=== PATIENT | female | born 1995 | race Caucasian/White ===

== ENCOUNTER 2016-11-01 21:56 | Emergency (ER) | payer OTHER ==
[~2016-11-01] VITALS: Ht 149.9 cm; Wt 62.6 kg
[~2016-11-01 21:56] MED LIST: FLEXERIL10 MG PO; MOTRIN 600 MG600 MG PO
--- NOTE | 2016-11-01 23:15 | ED UPPER/LOWER EXTREMITY COMPL ---
History of Present Illness General Chief Complaint: Lower Extremity Injury Stated Complaint: L ANKLE INJURY ICESKATING X 1 HR AGO Source: patient Exam Limitations: no limitations Vital Signs & Intake/Output Vital Signs & Intake/Output Vital Signs Date Time Temp Pulse Resp B/P Pulse O2 O2 Flow FiO2 Ox Delivery Rate 11/02 0034 98.0 76 18 120/76 98 Room Air 11/01 2329 Room Air 11/01 2201 98.2 82 18 97 Room Air ED Intake and Output 11/02 0000 11/01 1200 Intake Total 0 Output Total Balance 0 Intake, Oral 0 Patient 138 lb Weight Allergies Coded Allergies: latex (SWELLING, RASH 11/01/16) Reconcile Medications No Known Home Medications Triage Note: PT TO ED C/O LEFT ANKLE PAIN AND SWELLING S/P ROLLINGING IT WHILE ICE SKATING 1 HR MANDARIN TUTOR.. HAS WRAP ANSD ICE ON ARRIVAL. REFUSES TYLENOL/IBUPROFIN IN TRIAGE. PT DROVE SELF TO ED Triage Nurses Notes Reviewed? yes : No Patient currently breastfeeds: No HPI: this patient is a 21-year-old female who presented to the emergency department today for left ankle pain status post twisting her ankle while ice skating today. The patient reported the pain except an 8 out of 10 and is primarily located in the outside of her ankle. The pain is occasionally radiating up to her knee. The patient denied any numbness or tingling in her extremity. The pain has been constant since onset and worse with ambulation and when pressure is applied to the area. The patient denied any head strike or loss of consciousness. She denies any hip pain. The patient did not take any medication for the pain prior to arrival in the emergency department. (LUCY CHIN PA-C) Past History Travel History Traveled to [place] past 21 day No Medical History Any Pertinent Medical History? see below for history Neurological: NONE EENT: NONE Cardiovascular: NONE Respiratory: NONE Gastrointestinal: NONE Hepatic: NONE Renal: NONE Musculoskeletal: BACK PAIN Psychiatric: NONE Endocrine: NONE Blood Disorders: NONE Cancer(s): NONE WORM GROWER/Reproductive: NONE Surgical History Surgical History: non-contributory Psychosocial History What is your primary language Libyan Tobacco Use: Never used ETOH Use: denies use Illicit Drug Use: denies illicit drug use Family History Hx Contributory? No (LUCY CHIN PA-C) Review of Systems Review of Systems Constitutional: Reports: no symptoms. EENTM: Reports: no symptoms. Respiratory: Reports: no symptoms. Cardiovascular: Reports: no symptoms. Gastrointestinal/Abdominal: Reports: no symptoms. Musculoskeletal: Reports: see HPI. Skin: Reports: no symptoms. Neurological/Psychological: Reports: no symptoms. All Other Systems: Reviewed and Negative (LUCY CHIN PA-C) Physical Exam Physical Exam General Appearance: well developed/nourished, no apparent distress, alert, awake Comments: Well-developed well-nourished person in no acute distress HEENT: Head normocephalic/atraumatic, moist mucous membranes Neck: Supple. Full range of motion Back: Normal inspection Respiratory: No respiratory distress. Speaking in full sentences Left lower extremity: Effusion noted to the lateral malleolus. No overlying ecchymosis or erythema. Range of motion of the ankle limited due to pain. Capillary refill less than 2 seconds. Dorsalis pedis and posterior tibialis pulses 2+ and strong. No bony or muscular deformities noted. Neuro: Alert and oriented x3 Psych: Mood affect normal, normal memory normal judgment. Skin: Warm and dry, no rash on exposed skin (LUCY CHIN PA-C) Progress Differential Diagnosis: arterial insufficiency, cellulitis, compartment syndrome , contusion, dislocation, DVT, fracture, sprain, tendon injury Plan of Care: Orders Procedure Date/time Status Durable Medical Equipment 11/02 27 Active URINE 11/01 2205 Complete Laboratory Tests 11/01/162217: Urine Test NEGATIVE Diagnostic Imaging: Viewed by Me: Radiology Read. Discussed w/RAD: Radiology Read. Radiology Impression: PATIENT: CALLY ROBERTO PRESENT AGE: 21 PATIENT ACCOUNT NO: [id number] : 96 LOCATION: [facility] ORDERING PHYSICIAN: JOSELYN COKER MD SERVICE DATE: 11/01/16 EXAM TYPE: RAD - XRY-ANKLE 3 OR MORE VIEWS L EXAMINATION: XR ANKLE, LEFT CLINICAL INFORMATION: Left ankle injury. COMPARISON: None TECHNIQUE: AP, lateral, and mortise views of the left ankle. FINDINGS: Oblique fracture of the lateral malleolus at the level the synchondrosis. Fracture slightly displaced. Tibia intact. Ankle mortise is congruent. Soft tissue swelling over the anterior lateral ankle. IMPRESSION: Oblique fracture of lateral malleolus. DICTATED BY: MANGO MUNOZ MD DATE/TIME DICTATED:11/01/162337 LASER MACHINE OPERATOR:GENARO DATE/TIME TRANSCRIBED:11/01/162337 CONFIDENTIAL, DO NOT COPY WITHOUT APPROPRIATE AUTHORIZATION. <Electronically signed in Other Vendor System> SIGNED BY: MANGO MUNOZ MD 11/01/16 8120 (LUCY CHIN PA-C) Departure Departure Disposition: HOME OR SELF CARE Condition: Stable Clinical Impression Primary Impression: Fracture of malleolus of left ankle Referrals: TANISHA YOON MD PATIENT HAS NO PRIMARY CARE DR (PCP/Family) Additional Instructions: Please keep the splint in place that was applied here in the emergency Department. Keep the splint dry. Please remain nonweightbearing and use the crutches provided to here in the emergency department. You may apply ice to the effected area for 15-20 minutes, 3-4 times a day. Elevate your leg when possible. Please call to make an appointment with the orthopedic physician whose information has been provided to you in this packet for further evaluation. Return to the emergency department for any worsening symptoms or concerns. Departure Forms: Customer Survey General Discharge Information Prescriptions: Current Visit Scripts No Known Home Medications (LUCY CHIN PA-C) PA/CHAIN MAKER MACHINE Co-Sign Statement Statement: ED Attending supervision documentation- [] I saw and evaluated the patient. I have also reviewed all the pertinent lab results and diagnostic results. I agree with the findings and the plan of care as documented in the PA's/CHAIN MAKER MACHINE's documentation. [x] I have reviewed the ED Record and agree with the PA's/CHAIN MAKER MACHINE's documentation. [] Additions or exceptions (if any) to the PAs/CHAIN MAKER MACHINE's note and plan are summarized below: [] (SHEELA MANCIA,JOSELYN Branch) Procedures Splinting Location: left ankle Manual Alignment Performed: No Hand-Made Type: orthoglass Splint: posterior walking, U-SPLINT Splint Applied By: splint applied by me Pre-Proc Neuro Vasc Exam: normal Post-Proc Neuro Vasc Exam: normal Progress: Patient tolerated the procedure well. She refused any medication to go home with for pain. (LUCY CHIN PA-C)
--- NOTE | 2016-11-01 23:43 | RADIOLOGY REPORT ---
EXAMINATION: XR ANKLE, LEFT CLINICAL INFORMATION: Left ankle injury. COMPARISON: None TECHNIQUE: AP, lateral, and mortise views of the left ankle. FINDINGS: Oblique fracture of the lateral malleolus at the level the synchondrosis. Fracture slightly displaced. Tibia intact. Ankle mortise is congruent. Soft tissue swelling over the anterior lateral ankle. IMPRESSION: Oblique fracture of lateral malleolus.
[2016-11-02 00:34] VITALS: BP 120/76
== END 2016-11-02 00:35 ==
LOC: ERH 21:56
DX: S82.62XA Displaced fracture of lateral malleolus of left fibula, initial encounter for closed fracture (principal); X50.0XXA Overexertion from strenuous movement or load, initial encounter; Y93.21 Activity, ice skating
CPT/HCPCS: 73610-LT; 81025

== ENCOUNTER 2017-02-05 15:08 | Emergency (ER) | payer OTHER ==
[~2017-02-05] VITALS: Ht 149.9 cm; Wt 64.0 kg
--- NOTE | 2017-02-05 15:24 | ED GI/GU/ABDOMINAL COMPLAINT ---
History of Present Illness General Chief Complaint: Female Urogenital Problems Stated Complaint: SIB DR. GRIFFITH FOR EVAL/US Source: patient Exam Limitations: no limitations Vital Signs & Intake/Output Vital Signs & Intake/Output Vital Signs Date Time Temp Pulse Resp B/P B/P Pulse O2 O2 Flow FiO2 Mean Ox Delivery Rate 02/05 1515 98.2 91 18 143/83 98 Room Air Allergies Coded Allergies: latex (SWELLING, RASH 11/01/16) Reconcile Medications No Known Home Medications Triage Note: 21 YO FEMALE SENT IN BY CONTINUOUS IMPROVEMENT ANALYST. STATES SHE HAS BEEN HAVING VAGINAL BLEEDING FOR 4 DAYS. STATES PAIN IN RUQ/RLQ. STATES VAGINAL BLEEDING HAS SUBSIDED BUT THE PAIN REMAINS. DENEIS NAUSEA/VOMITING. Triage Nurses Notes Reviewed? yes ? N Is pt currently ? No Onset: Abrupt Duration: day(s): (6) Timing: recent history Quality/Severity: sharpness, severe Location: right lower quadrant, right upper quadrant (MILD WITH COUGH) Activities at Onset: none Sexually Active: Yes Use of Protection: Yes Always Associated Symptoms: abdominal pain, VAGINAL BLEEDING HPI: This is a 21-year-old healthy female presents to the operative right upper quadrant and right lower quadrant abdominal pain. She states last and Friday she had significant lower abdominal pain. She thought she was constipated took 2 stool softeners and Gas-X without relief. Friday night into Friday morning she started bleeding heavily. She states she had just finished her period prior 5 days prior to that. Patient bled heavily over the weekend until Friday and states that even now when the bleeding has gone she still having persistent right lower quadrant pain. She also has right upper quadrant pain worse with coughing. She saw her primary care doctor who did a urine which was negative but sent her in for evaluation and ultrasound. No personal history of ovarian cysts. She's never been . Denies any vaginal discharge or urinary symptoms. She has since had a bowel movement which she reports is normal. No nausea vomiting fever or chills. Family history of MS and diabetes. Past History Travel History Traveled to [place] past 21 day No Medical History Any Pertinent Medical History? see below for history Neurological: NONE EENT: NONE Cardiovascular: NONE Respiratory: NONE Gastrointestinal: NONE Hepatic: NONE Renal: NONE Musculoskeletal: BACK PAIN Psychiatric: NONE Endocrine: NONE Blood Disorders: NONE Cancer(s): NONE CONTINUOUS IMPROVEMENT ANALYST/Reproductive: NONE Surgical History Surgical History: non-contributory Psychosocial History What is your primary language Yi Tobacco Use: Never used Family History Comment: MOTHER - MS FAMILY H/O DM Hx Contributory? No Review of Systems Review of Systems Constitutional: Denies: chills, fever. EENTM: Reports: no symptoms. Respiratory: Denies: cough, short of breath. Cardiovascular: Denies: chest pain, palpitations. GI: Reports: abdominal pain, constipation. Denies: nausea, vomiting. Genitourinary: Reports: no symptoms. Musculoskeletal: Reports: no symptoms. Skin: Reports: no symptoms. Neurological/Psychological: Reports: no symptoms. Hematologic/Endocrine: Reports: bleeding. Denies: bruising, polyuria, polydipsia. Immunologic/Allergic: Reports: no symptoms. All Other Systems: Reviewed and Negative Physical Exam Physical Exam General Appearance: well developed/nourished, alert, awake, mild distress Head: atraumatic, normal appearance Eyes: Bilateral: normal appearance, PERRL, normal inspection. Ears, Nose, Throat, Mouth: hearing grossly normal, moist mucous membrane Neck: normal inspection, supple, full range of motion Respiratory: normal breath sounds, chest non-tender, no respiratory distress Cardiovascular: edema Peripheral Pulses: 2+ radial (R), 2+ radial (L) Gastrointestinal: soft, tenderness (MILD RUQ/RL) Core Measures ACS in differential dx? No Severe Sepsis Present: No Septic Shock Present: No Progress Differential Diagnosis: cholecystitis, ectopic , intrauterine , kidney stone, ovarian cyst, ovarian torsion, IBD, IBS Plan of Care: Orders Procedure Date/time Status LIPASE 02/05 1532 Complete COMPREHENSIVE METABOLIC PANEL 02/05 1532 Complete CBC WITHOUT DIFFERENTIAL 02/05 1532 Complete AMYLASE 02/05 1532 Complete URINE 02/05 1521 Complete URINALYSIS 02/05 1521 Complete Laboratory Tests 02/05/17 1618: Anion Gap 16, Estimated GFR > 60, BUN/Creatinine Ratio 18.3, Glucose 78, Calcium 9.5, Total Bilirubin 0.7, AST 33, ALT 44, Alkaline Phosphatase 78, Total Protein 7.8, Albumin 4.8, Globulin 3.0, Albumin/Globulin Ratio 1.6, Amylase 42, Lipase 42, CBC w Diff NO MAN DIFF REQ, RBC 4.69, MCV 77.4 L, MCH 25.5 L, RDW 14.8 H, MPV 8.7, Gran % 69.2, Lymphocytes % 22.3, Monocytes % 6.0, Eosinophils % 2.2, Basophils % 0.3, Absolute Granulocytes 5.7, Absolute Lymphocytes 1.8, Absolute Monocytes 0.5, Absolute Eosinophils 0.2, Absolute Basophils 0, PUBS MCHC 32.9 L , Urine Color YEL, Urine Clarity HAZY H, Urine pH 6.0, Ur Specific [place] 1.025, Urine Protein TRACE H, Urine Ketones 40 H, Urine Nitrite NEG, Urine Bilirubin NEG@ICTO, Urine Urobilinogen 0.2, Ur Leukocyte Esterase SMALL H, Ur Microscopic SEDIMENT EXAMINED, Urine WBC 15-25 H, Ur Epithelial Cells MANY H, Urine Bacteria FEW H, Urine Mucus MOD H, Urine Hemoglobin NEG, Urine Glucose NEG, Urine Test NEGATIVE 5:[address] ADRIANA SALAS. PAIN FREE IN THE ED. NO CLINICAL SUSPICION AT THIS POINT FOR TORSION BUT SYMPTOMS DISCUSSED WITH PATIENT IN DETAIL WHEN TO RETURN. DISCUSSED WITH DR RWIGHT. WILL FOLLOW UP IN OFFICE. (BAILEY MANCIA,ERIK) Diagnostic Imaging: Viewed by Me: Ultrasound. Discussed w/RAD: Ultrasound. Initial ED EKG: none Comments: PATIENT: CALLY ROBERTO PRESENT AGE: 21 PATIENT ACCOUNT NO: [id number] : 96 LOCATION: [facility] ORDERING PHYSICIAN: ERIK AVALOS MD SERVICE DATE: 02/05/17 EXAM TYPE: US - US-LIMITED ABDOMEN EXAMINATION: US ABDOMEN LIMITED CLINICAL INFORMATION: Right upper quadrant pain. COMPARISON: None. TECHNIQUE: Real-time imaging of the right upper quadrant abdominal viscera. FINDINGS: PANCREAS: Normal. LIVER: Normal. The liver demonstrates normal size, contour and echogenicity. No focal lesion or intrahepatic biliary duct dilatation. GALLBLADDER: Normal. The gallbladder is physiologically distended without evidence of stones, sludge, polyps, wall thickening or pericholecystic fluid. COMMON BILE DUCT: Normal in caliber measuring 0.4 cm in diameter. RIGHT KIDNEY: Normal. No hydronephrosis. No renal calculi or focal parenchymal lesions. The kidney measures 10.2 cm in maximum dimension. FREE FLUID: None. IMPRESSION: Unremarkable examination. DICTATED BY: AUGUSTINE KIM MD DATE/TIME DICTATED:02/05/171624 DIET ATTENDANT:GENARO DATE/TIME TRANSCRIBED:02/05/171624 CONFIDENTIAL, DO NOT COPY WITHOUT APPROPRIATE AUTHORIZATION. <Electronically signed in Other Vendor System> SIGNED BY: AUGUSTINE KIM MD 02/05/17 165 PATIENT: CALLY ROBERTO PRESENT AGE: 21 PATIENT ACCOUNT NO: [id number] : 96 LOCATION: [facility] ORDERING PHYSICIAN: ERIK AVALOS MD SERVICE DATE: 02/05/17 EXAM TYPE: US - US-TRANSVAGINAL EXAMINATION: US PELVIS COMPLETE CLINICAL INFORMATION: Right lower quadrant pain and heavy menstrual bleeding; the last menstrual period was on 01/16/2017. COMPARISON: None. TECHNIQUE: Transabdominal and transvaginal imaging were performed. FINDINGS: The uterus is of normal size and echogenicity measuring 7.6 x 3.3 x 4.5 cm. The uterus is anteverted. A regular homogeneous endometrium is identified measuring 1.1 cm. Within the endometrial canal, a 0.3 x 0.3 x 0.6 cm hypoechoic cyst is seen, which could be related to a gestational sac although this is uncertain. There is a small amount of further layering nonspecific free fluid more distally within the endometrial canal. The cervical length is 2.7 cm. Both ovaries are of normal echogenicity. The right ovary measures 4.8 x 4.7 x 3.9 cm for a volume of 35.8 mL. The right ovary contains a 4.0 x 2.8 x 3.7 cm hemorrhagic cyst with internal reticulated appearance characteristic of a hemorrhagic cyst. The left ovary measures 3.9 x 1.8 x 2.0 cm for a volume of 7.3 mL. There is a small amount of free fluid posterior to the right ovary. IMPRESSION: 1. A small anechoic collection is seen within the distal endometrial canal, which could represent a gestational sac, although this is uncertain. Please correlate with a test. Follow-up ultrasound imaging may be indicated. 2. There is a small amount nonspecific free fluid within the endometrial canal. 3. A 4.8 cm in maximal diameter right ovarian hemorrhagic cyst is noted. DICTATED BY: AUGUSTINE KIM MD DATE/TIME DICTATED:02/05/171625 DIET ATTENDANT:GENARO DATE/TIME TRANSCRIBED:05/10/17 / 1626 CONFIDENTIAL, DO NOT COPY WITHOUT APPROPRIATE AUTHORIZATION. <Electronically signed in Other Vendor System> SIGNED BY: AUGUSTINE KIM MD 02/05/17 1650 Departure Departure Time of Disposition: 1718 Disposition: HOME OR SELF CARE Condition: Stable Clinical Impression Primary Impression: Abdominal pain Secondary Impressions: Hemorrhagic ovarian cyst Referrals: LUCIA GRIFFITH (PCP/Family) ADRIANA MANCIA,CHENCHO Hubbard Additional Instructions: FOLLOW UP WITH DR WRIGHT IN THE OFFICE REGARDING YOUR ULTRASOUND RESULTS MOTRIN OR TYLENOL NEEDED FOR PAIN IF YOU HAVE SIGNIFICANT PAIN OR BLEEDING RETURN IMMEDIATELY TO THE ER Departure Forms: Customer Survey General Discharge Information Prescriptions: Current Visit Scripts No Known Home Medications
[2017-02-05 16:28] LABS: ABSOLUTE BASOPHIL COUNT 0 /CUMM (0.0-0.2); ABSOLUTE EOSINOPHIL COUNT 0.2 /CUMM (0.0-0.7); ABSOLUTE GRANULOCYTE CT 5.7 /CUMM (1.4-6.5); ABSOLUTE LYMPH COUNT 1.8 /CUMM (1.2-3.4); ABSOLUTE MONOCYTE COUNT 0.5 /CUMM (0.10-0.60); BASOPHIL % 0.3 % (0.0-2.0); EOSINOPHIL % 2.2 % (0-5); GRANULOCYTE % 69.2 % (42.2-75.2); HEMATOCRIT 36.3 % (37-47); MEAN CORPUSCULAR HGB 25.5 PG (27.0-31.0); MEAN CORPUSCULAR HGB CONC 32.9 G/DL (33.0-37.0); MEAN CORPUSCULAR VOLUME 77.4 FL (81.0-99.0); MEAN PLATELET VOLUME 8.7 FL (7.4-10.4); PLATELET COUNT 261 /CUMM (130-400); RBC DISTRIBUTION WIDTH 14.8 % (11.5-14.5); RED BLOOD CELL CT 4.69 /CUMM (4.20-5.40); WHITE BLOOD CELL COUNT 8.2 /CUMM (4.8-10.8)
--- NOTE | 2017-02-05 16:50 | ULTRASOUND REPORT ---
EXAMINATION: US PELVIS COMPLETE CLINICAL INFORMATION: Right lower quadrant pain and heavy menstrual bleeding; the last menstrual period was on 01/16/2017. COMPARISON: None. TECHNIQUE: Transabdominal and transvaginal imaging were performed. FINDINGS: The uterus is of normal size and echogenicity measuring 7.6 x 3.3 x 4.5 cm. The uterus is anteverted. A regular homogeneous endometrium is identified measuring 1.1 cm. Within the endometrial canal, a 0.3 x 0.3 x 0.6 cm hypoechoic cyst is seen, which could be related to a gestational sac although this is uncertain. There is a small amount of further layering nonspecific free fluid more distally within the endometrial canal. The cervical length is 2.7 cm. Both ovaries are of normal echogenicity. The right ovary measures 4.8 x 4.7 x 3.9 cm for a volume of 35.8 mL. The right ovary contains a 4.0 x 2.8 x 3.7 cm hemorrhagic cyst with internal reticulated appearance characteristic of a hemorrhagic cyst. The left ovary measures 3.9 x 1.8 x 2.0 cm for a volume of 7.3 mL. There is a small amount of free fluid posterior to the right ovary. IMPRESSION: 1. A small anechoic collection is seen within the distal endometrial canal, which could represent a gestational sac, although this is uncertain. Please correlate with a test. Follow-up ultrasound imaging may be indicated. 2. There is a small amount nonspecific free fluid within the endometrial canal. 3. A 4.8 cm in maximal diameter right ovarian hemorrhagic cyst is noted.
--- NOTE | 2017-02-05 16:51 | ULTRASOUND REPORT ---
EXAMINATION: US ABDOMEN LIMITED CLINICAL INFORMATION: Right upper quadrant pain. COMPARISON: None. TECHNIQUE: Real-time imaging of the right upper quadrant abdominal viscera. FINDINGS: PANCREAS: Normal. LIVER: Normal. The liver demonstrates normal size, contour and echogenicity. No focal lesion or intrahepatic biliary duct dilatation. GALLBLADDER: Normal. The gallbladder is physiologically distended without evidence of stones, sludge, polyps, wall thickening or pericholecystic fluid. COMMON BILE DUCT: Normal in caliber measuring 0.4 cm in diameter. RIGHT KIDNEY: Normal. No hydronephrosis. No renal calculi or focal parenchymal lesions. The kidney measures 10.2 cm in maximum dimension. FREE FLUID: None. IMPRESSION: Unremarkable examination.
[2017-02-05 17:42] VITALS: BP 122/74
== END 2017-02-05 17:43 ==
LOC: ERH 15:08
PROVIDERS: Emergency Medicine
DX: N83.201 Unspecified ovarian cyst, right side (principal)
CPT/HCPCS: 81001; 81025; 87086

== ENCOUNTER 2017-02-08 08:26 | Emergency (ER) | payer OTHER ==
--- NOTE | 2017-02-08 08:47 | ED GI/GU/ABDOMINAL COMPLAINT ---
History of Present Illness General Chief Complaint: Abdominal Pain/Flank Pain Stated Complaint: SUDDEN ONSET ABD PAIN Source: patient, family, old records Exam Limitations: no limitations Vital Signs & Intake/Output Vital Signs & Intake/Output Vital Signs Date Time Temp Pulse Resp B/P B/P Pulse O2 O2 Flow FiO2 Mean Ox Delivery Rate 02/08 1032 97.2 72 18 100/52 98 Room Air 02/08 1009 Room Air Room Air 02/08 0829 97.0 104 28 138/71 97 Allergies Coded Allergies: latex (SWELLING, RASH 11/01/16) Reconcile Medications No Known Home Medications Triage Note: per pt told has anovarian cyst on rt just laying down terrible sudden onset of pain x 15 minutes. lmp 01/16 Triage Nurses Notes Reviewed? yes ? N Is pt currently ? No HPI: Patient has a known right ovarian cyst. This morning she had a sudden onset of sharp stabbing pain in the right adnexal area. The pain is 10 out of 10. The pain is constant. There is no aggravating or mitigating factors. There is no radiation. Past History Travel History Traveled to [place] past 21 day No Medical History Any Pertinent Medical History? 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 No Review of Systems Review of Systems Constitutional: Reports: no symptoms. EENTM: Reports: no symptoms. Respiratory: Reports: no symptoms. Cardiovascular: Reports: no symptoms. GI: Reports: see HPI. Genitourinary: Reports: no symptoms. Musculoskeletal: Reports: no symptoms. Skin: Reports: no symptoms. Neurological/Psychological: Reports: no symptoms. Hematologic/Endocrine: Reports: no symptoms. Immunologic/Allergic: Reports: no symptoms. All Other Systems: Reviewed and Negative Physical Exam Physical Exam General Appearance: well developed/nourished, alert, awake, anxious, moderate distress Head: atraumatic, normal appearance Eyes: Bilateral: PERRL, EOMI. Ears, Nose, Throat, Mouth: hearing grossly normal, moist mucous membrane Neck: normal inspection, supple, full range of motion Respiratory: normal breath sounds, chest non-tender, no respiratory distress, lungs clear Cardiovascular: regular rate/rhythm, normal peripheral pulses Gastrointestinal: normal bowel sounds, soft, no organomegaly, tenderness (RT ADNEXAL AREA) Extremities: normal range of motion Neurologic/Psych: no motor/sensory deficits, awake, alert, oriented x 3, normal mood/affect Core Measures ACS in differential dx? No Severe Sepsis Present: No Septic Shock Present: No Progress Differential Diagnosis: ovarian cyst, ovarian torsion, UTI/pyelo Plan of Care: Orders Procedure Date/time Status URINE 02/08 846 Active URINALYSIS 02/08 846 Active Diagnostic Imaging: Viewed by Me: Ultrasound. Discussed w/RAD: Ultrasound. Radiology Impression: PATIENT: CALLY ROBERTO PRESENT AGE: 21 PATIENT ACCOUNT NO: [id number] : 96 LOCATION: [facility] ORDERING PHYSICIAN: KATELYN WHALEY MD SERVICE DATE: 02/08/17 EXAM TYPE: US - US-TRANSVAGINAL EXAMINATION: US TRANSVAGINAL CLINICAL INFORMATION: Sudden onset right adnexal pain. Known right ovarian cyst. Evaluate for ovarian torsion. COMPARISON: Pelvic ultrasound of 02/05/2017. TECHNIQUE: Sonographic imaging of the pelvis was performed using transabdominal and transvaginal transducers. Duplex Doppler imaging of the ovaries was performed, as well. FINDINGS: The uterus measures approximately 8 cm long, 3.6 cm AP and 4.7 cm transverse. The endometrium measures up to 1.1 cm AP and it has normal, uniform echotexture. Cervical canal is 2.5 cm in length. There are no uterine or cervical masses. There is a small nabothian cyst of the cervix. The right ovary measures 4.7 x 3.2 x 4.6 cm. A 4 x 2.7 x 3.3 cm ovarian cyst containing internal echoes and lacelike internal architecture is compatible with a hemorrhagic cyst. This cyst measured 4 x 2.8 x 3.6 cm on 02/05/2017. Color Doppler images with spectral waveforms show presence of normal arterial and venous flow within the ovary. The left ovary measures 2.9 x 1.7 x 1.6 cm. There are no left adnexal masses. Color Doppler images with spectral waveforms show presence of normal arterial and venous flow within the left ovary. A small amount of free fluid is present within the pelvic cul-de-sac. IMPRESSION: 1. No evidence of ovarian torsion. 2. Hemorrhagic cyst of the right ovary remains similar in size compared to 2016. Small amount of free fluid is present within the pelvic cul-de-sac and this could be secondary to recent cyst rupture. DICTATED BY: MICK QUINTANA MD DATE/TIME DICTATED:02/08/171016 HOME HEALTH PROVIDER:[facility] DATE/TIME TRANSCRIBED:02/08/171016 CONFIDENTIAL, DO NOT COPY WITHOUT APPROPRIATE AUTHORIZATION. <Electronically signed in Other Vendor System> SIGNED BY: MICK QUINTANA MD 02/08/17 1026 Initial ED EKG: none Departure Departure Disposition: HOME OR SELF CARE Condition: Stable Clinical Impression Primary Impression: Right ovarian cyst Referrals: LUCIA GRIFFITH (PCP/Family) ADRIANA MANCIA,CHENCHO Hubbard Additional Instructions: follow up with your gynocologist return as needed or for any concerns Departure Forms: Customer Survey General Discharge Information Prescriptions: Current Visit Scripts No Known Home Medications
--- NOTE | 2017-02-08 10:26 | ULTRASOUND REPORT ---
EXAMINATION: US TRANSVAGINAL CLINICAL INFORMATION: Sudden onset right adnexal pain. Known right ovarian cyst. Evaluate for ovarian torsion. COMPARISON: Pelvic ultrasound of 02/05/2017. TECHNIQUE: Sonographic imaging of the pelvis was performed using transabdominal and transvaginal transducers. Duplex Doppler imaging of the ovaries was performed, as well. FINDINGS: The uterus measures approximately 8 cm long, 3.6 cm AP and 4.7 cm transverse. The endometrium measures up to 1.1 cm AP and it has normal, uniform echotexture. Cervical canal is 2.5 cm in length. There are no uterine or cervical masses. There is a small nabothian cyst of the cervix. The right ovary measures 4.7 x 3.2 x 4.6 cm. A 4 x 2.7 x 3.3 cm ovarian cyst containing internal echoes and lacelike internal architecture is compatible with a hemorrhagic cyst. This cyst measured 4 x 2.8 x 3.6 cm on 02/05/2017. Color Doppler images with spectral waveforms show presence of normal arterial and venous flow within the ovary. The left ovary measures 2.9 x 1.7 x 1.6 cm. There are no left adnexal masses. Color Doppler images with spectral waveforms show presence of normal arterial and venous flow within the left ovary. A small amount of free fluid is present within the pelvic cul-de-sac. IMPRESSION: 1. No evidence of ovarian torsion. 2. Hemorrhagic cyst of the right ovary remains similar in size compared to 02/05/2017. Small amount of free fluid is present within the pelvic cul-de-sac and this could be secondary to recent cyst rupture.
[2017-02-08 10:32] VITALS: BP 100/52
== END 2017-02-08 10:43 ==
LOC: ERH 08:26
DX: N83.201 Unspecified ovarian cyst, right side (principal)
CPT/HCPCS: 81025; 96372; J1885

== ENCOUNTER → 2017-02-13 | Day surgery (SDC) | payer OTHER ==
[~2017-02-13] VITALS: Ht 149.9 cm; Wt 64.0 kg
--- NOTE | 2017-02-18 19:30 | Operative Report ---
Operative/Inv Procedure Report Surgery Date: 02/13/17 Name of Procedure: Laparoscopy aspiration of cul-de-sac fluid Pre-Operative Diagnosis: PELVIC PAIN. For repeat pelvic pain and pelvic mass pelvic pain and pelvic mass Post-Operative Diagnosis: Ruptured Same cyst Estimated Blood Loss: scant Surgeon/Oceanography Teacher: CHENCHO WRIGHT MD Anesthesia: general endotracheal tube Operative/Procedure Note Note: Suture note patient was taken the operating room placed on position after adequate induction general anesthesia via endotracheal tube patient placed in dorsolithotomy position the vagina prepped draped so fashion bladder was catheterized examination under anesthesia performed surgeon regowned and gloved at the placement of the Mayer cannula into the cervix and single-tooth tenaculum at this point on stab incision made at the umbilicus the abdomen was insufflated possibly fully Z CO2 to liver edge dullness which point the Veress needle was removed a 10 mm trocar was inserted atraumatically at the umbilicus sheath remained in place through that sheath a laparoscope was placed under direct visualization a 5 mm trocar was placed 2 fingerbreadths of symptoms pubis in the midline through that a Kleppinger was placed on the tube and ovary removed about with that and atraumatic port was placed on IV fluid was removed and sent to cytology pictures were taken maximal CO2 was removed from the abdomen on since removed from the abdomen the incision at the umbilicus a far shows reapproximated using 0 in continuous rot running lock odd the skin was reapproximated both incisions with interrupted sutures of 3-0 monofilament Marcaine was injected underneath skin sterile best dressings were applied after bacitracin had been applied to the incisions at the end of the case Mayer cannula was removed all counts were correct the patient was awakened from anesthesia extubated and transferred recovery room awake and alert supine position Findings: Normal tubes and ovaries bilateral approximately 100 mL of serosanguineous fluid in the cul-de-sac the right ovary demonstrated evidence of ruptured recent hemorrhagic cyst normal left ovary normal tubes normal uterus otherwise normal anatomy
== END ==
LOC: STS 03:13
DX: N83.201 Unspecified ovarian cyst, right side (principal); R10.2 Pelvic and perineal pain
CPT/HCPCS: 81025; 88305; J0694; J2250